=== PATIENT | male | born 1980 | race Caucasian/White ===

== ENCOUNTER 2017-01-05 18:48 | Emergency (ER) | payer OTHER ==
[~2017-01-05] VITALS: Ht 167.6 cm; Wt 89.0 kg
[2017-01-05 18:53] VITALS: Ht 167.6 cm; Wt 89.0 kg
[2017-01-05] MEDS ORDERED: FLUORESCEIN STRIP LEFT EYE ONE (19:30)
[2017-01-05] MEDS ORDERED: TETRACAINE 0.5% 4 ML OPH BOTH EYES ONE (19:30)
[2017-01-05] MEDS ORDERED: OPHTHALMIC IRRIG SOLUTION 120 ML LEFT EYE ONE (19:30)
--- NOTE | 2017-01-05 19:33 | ERD ---
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 Patient was referred to the ED by his primary care physician. 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 Patient states 3 days ago he was disconnecting plastic tubing, when it hit him in the left eye. Patient denies any chemicals or liquids washing into his eye. Patient does have some mild blurry vision in his left eye. Patient denies any headache, nausea, vomiting, LOC. Patient does not wear contact lens. Patient has not seen an regional extension service specialist. ROS All systems reviewed and are negative except as per history of present illness. Medications Home Meds Active Scripts Ibuprofen* (Motrin*) 600 Mg Tab, 600 MG PO Q6, #20 TAB Prov:JAMILAH LOPEZ PA-C 01/05/17 Ofloxacin* (Ocuflox*) 0.3%-5 Ml Ophth Drops, 1 DROP LEFT EYE QID for 7 Days, BOTTLE Prov:JAMILAH LOPEZ PA-C 01/05/17 Allergies Allergies: Coded Allergies: No Known Allergy (Unverified , 01/05/17) PMhx/Soc Hx Miscellaneous Medical Probl: Yes (DM) FmHx Family History: diabetes Physical Exam Vitals Vital Signs Date Time Temp Pulse Resp B/P Pulse Ox O2 Delivery O2 Flow Rate FiO2 01/05/17 18:53 98.4 80 20 128/64 99 Physical Exam GENERAL: Well-developed, well-nourished male. Appears in no acute distress. HEAD: Normocephalic, atraumatic. No facial abrasions noted. Orbital rims nontender to palpation. EYES : Visual acuity w/ Snellen eye chart: 20/20 OS, 20/20 OD, 20/15 OU Normal eye alignment. No proptosis. Pupils equal, round, and reactive to light. EOMs intact. Bilateral conjunctival erythema noted. Anterior chamber clear. No hyphema or hypopion. + Pterygium noted of the medial aspect of the left eye. Wood's lamp exam: No foreign bodies, corneal abrasions or ulcerations visualized with fluorescein dye. +Pterygium noted with fluorescein staining of left eye. Negative Stuart test. No globe rupture. ENT: Moist mucous membranes. No uvula deviation. No kissing tonsils. NECK: Supple. No meningismus. Normal range of motion of the neck. LUNG: Clear to auscultation bilaterally. No rhonchi, wheezing, rales or coarse breath sounds. HEART: Regular rate and rhythm. No murmurs, rubs or gallops. EXTREMITIES: Equal pulses bilaterally. No peripheral clubbing, cyanosis or edema. No unilateral leg swelling. NEUROLOGIC: Alert and oriented. Moving all four extremities without any difficulty. Normal speech. Steady gait. SKIN: Normal color. Warm and dry. No rashes or lesions. Results 24 hrs Current Medications Medications (Trade) Dose Ordered Sig/Ronan Route PRN Reason Start Time Stop Time Status Last Admin Dose Admin Tetracaine HCl (Tetracaine 0.5% Steri-Unit Sagrario) 1 drop ONCE ONCE BOTH EYES 01/05/17 19:30 01/05/17 19:31 DC Fluorescein Sodium (Lywee-B-Ooueg) 1 strip ONCE ONCE LEFT EYE 01/05/17 19:30 01/05/17 19:31 DC Irrigating Solution (Eye Wash) 1 applic ONCE ONCE LEFT EYE 01/05/17 19:30 01/05/17 19:31 DC 01/05/17 19:39 Procedures/MDM MEDICAL DECISION MAKING: This is a 36-year-old male who presents to the emergency department for concerns of left eye pain and irritation after a plastic tubing hit him in the eye 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 Patient states injury occurred 3 days ago. Vital signs were reviewed. Patient was afebrile. Visual acuity was checked. Patient was 20/20 in his left eye, 20/20 in his right eye and 20/15 bilaterally. Wood's lamp examination revealed positive findings of a pterygium. Negative Stuart sign. No hyphema noted. Patient's eye was rinsed out using eyewash solution. Given these findings, the patient's presentation is most consistent with infected pterygium of the left eye with corneal irritation. I have a much lower clinical concern for bacterial conjunctivitis, viral conjunctivitis, allergic conjunctivitis, corneal ulcer, retained eye foreign body, globe rupture, orbital trauma, periorbital cellulitis, orbital cellulitis , hordeolum, dacrocystitis, retinal detachment. PRESCRIPTIONS: Ibuprofen, Ocuflox DISCHARGE: At this time, patient is stable for discharge and outpatient management. Patient was advised to follow-up with an regional extension service specialist in the next 1-2 days. Referral information provided. Supportive measures were discussed with patient including warm/cool compresses. Patient advised not to wear contact lenses or eye makeup. I have instructed the patient to follow-up with his/her primary care physician in 1-2 days. I have discussed with the patient the possibility of needing to see an regional extension service specialist for further workup if symptoms persist. I have instructed the patient to promptly return to the ER for any new or worsening symptoms including increased pain, fever, swelling, redness, warmth, nausea, vomiting, . The patient and/or family expressed understanding of and agreement with this plan. All questions were answered. Home care instructions were provided. Departure Diagnosis: Primary Impression: Corneal irritation of left eye Additional Impression: Pterygium of left eye Condition: Stable Patient Instructions: Corneal Injury Referrals: WALTER WALLS MD (PCP) Additional Instructions: Go to see an regional extension service specialist tomorrow. See referral information. Call your primary care doctor TOMORROW for an appointment during the next 1-2 days.See the doctor sooner or return here if your condition worsens before your appointment time. JAMILAH LOPEZ PA-C Jan 05, 2017 19:33
[2017-01-05] MEDS ORDERED: OFLO5DRO46 LEFT EYE (20:03)
[2017-01-05] MEDS ORDERED: IBUP-1542 PO (20:04)
== END 2017-01-05 20:18 | disposition home or self-care (01) ==
LOC: FTE 18:48
DX: H57.8 Other specified disorders of eye and adnexa (principal); H11.002 Unspecified pterygium of left eye; E11.9 Type 2 diabetes mellitus without complications
CPT/HCPCS: Z7502; Z7610; 99283

== ENCOUNTER 2017-06-24 17:34 | Emergency (ER) | END 2017-06-24 20:05 | disposition home or self-care (01) ==

== ENCOUNTER 2017-07-08 15:39 | Emergency (ER) | END 2017-07-08 19:05 | disposition home or self-care (01) ==

== ENCOUNTER 2019-02-07 15:19 | Emergency (ER) | payer OTHER ==
[~2019-02-07] VITALS: Ht 157.5 cm; Wt 83.1 kg
[~2019-02-07 15:19] MED LIST: BEN50 PO; CIPR500T4 PO; CLIN300C10 PO; DOXY100T20 PO; IBUP-1542 PO; OFLO5DRO46 LEFT EYE; PRED20TA PO; TAMS-14 PO
[2019-02-07 15:22] VITALS: BP 149/69; PULSE 73; RESP 18; Ht 157.5 cm; Wt 83.1 kg
[2019-02-07] MEDS ORDERED: KETOROLAC 30 MG INJ IM STA (17:04)
[2019-02-07] MEDS ORDERED: CEFTRIAXONE 250 MG INJ IM ONE (18:00)
== END 2019-02-07 18:19 | disposition home or self-care (01) ==
LOC: FTE 15:19
DX: N41.0 Acute prostatitis (principal); E11.9 Type 2 diabetes mellitus without complications; F17.210 Nicotine dependence, cigarettes, uncomplicated
CPT/HCPCS: 51702; 80053; 81003; 83690; 85025; 87591; 96372; J0696; J1885; Z7502; Z7610